=== PATIENT | male | born 1945 | race Caucasian/White ===

== ENCOUNTER → 2018-01-29 | Outpatient (CLI) | payer OTHER ==
[~2018-01-29] MED LIST: PERCOCET 5-3251 EACH PO
== END ==
LOC: M.RAD 15:18
DX: M25.48 Effusion, other site (principal); M76.52 Patellar tendinitis, left knee; M25.561 Pain in right knee; M25.562 Pain in left knee

== ENCOUNTER 2018-04-14 10:45 | Emergency (ER) | payer OTHER ==
[~2018-04-14] VITALS: Ht 172.7 cm; Wt 74.4 kg
[2018-04-14] MEDS ORDERED: CENTRUM SILVER1 EAC2 PO (11:04)
[2018-04-14] MEDS ORDERED: KEFLEX500 M1 PO (11:36)
[2018-04-14 11:58] VITALS: BP 125/70
== END 2018-04-14 11:58 | disposition home or self-care (01) ==
LOC: M.ERS 10:45
DX: S61.412A Laceration without foreign body of left hand, initial encounter (principal); Z88.2 Allergy status to sulfonamides; W26.8XXA Contact with other sharp object(s), not elsewhere classified, initial encounter; Y93.89 Activity, other specified; Y92.89 Other specified places as the place of occurrence of the external cause; Y99.8 Other external cause status

== ENCOUNTER 2018-04-21 08:55 | Emergency (ER) | payer OTHER ==
[~2018-04-21] VITALS: Ht 172.7 cm; Wt 74.8 kg
[~2018-04-21 08:55] MED LIST changes: +CENTRUM SILVER1 EAC2 PO; +KEFLEX500 M1 PO
[2018-04-21 08:59] VITALS: BP 124/66
== END 2018-04-21 09:16 | disposition home or self-care (01) ==
LOC: M.ERS 08:55
DX: S61.412D Laceration without foreign body of left hand, subsequent encounter (principal); Z88.2 Allergy status to sulfonamides; X58.XXXD Exposure to other specified factors, subsequent encounter